=== PATIENT | female | born 1990 | race Caucasian/White ===

== ENCOUNTER → 2020-10-17 | Outpatient (CLI) | payer OTHER | END | disposition home or self-care (01) | LOC: CFH 14:37 | PROVIDERS: ATTEND Anesthesiology | DX: N20.0 Calculus of kidney (principal) | CPT/HCPCS: 74176 ==

== ENCOUNTER 2020-10-19 18:00 | Emergency (ER) | payer OTHER ==
[~2020-10-19] VITALS: Ht 165.1 cm; Wt 66.5 kg
--- NOTE | 2020-10-19 18:35 | NUR ---
PATIENT WALKED BACK FROM TRIAGE WITH CHIEF C/O "I'M PRETTY SURE I'M PASSING A KIDNEY STONE RIGHT NOW." PATIENT REPORTS FEELING REALLY SHARP PAIN IN HER LEFT SIDE THAT STARTED ABOUT AN HOUR AGO ALONG WITH SHARP PELVIC PAIN. PATIENT HAD PELVIC ULTRASOUND DONE WHICH WAS NEGATIVE. PATIENT HAD CT SCAN DONE WEDNESDAY WHICH WAS NEGATIVE, PATIENT JUST STARTED PERIOD. PATIENT HAS HISTORY OF KIDNE STONES 10 YEARS AGO. ER PROVIDER AT BEDSIDE FOR EVALUATION.
--- NOTE | 2020-10-19 18:52 | NUR ---
PATIENT TO IMAGING.
[2020-10-19] MEDS ORDERED: ONDANSETRON 2MG/ML, 2ML ONE (18:56)
[2020-10-19] MEDS ORDERED: KETOROLAC 30 MG/1 ML ONE (18:56)
[2020-10-19] MEDS ORDERED: SODIUM CHLORIDE FLUSH 10ML SYR IVF ONE (19:00)
[2020-10-19] MEDS ORDERED: ONDANSETRON 2MG/ML, 2ML IVPush ONE (19:00)
[2020-10-19] MEDS ORDERED: KETOROLAC 30 MG/1 ML IVPush ONE (19:00)
--- NOTE | 2020-10-19 19:15 | NUR ---
TASK RN: PT RESTING ON ORION. DOMING[place]. VSS. MEDICATED PER DEC. UA COLLECTED, LABELED, AND SENT TO LAB.
[2020-10-19 19:18] LABS: ALANINE AMINOTRANSFERASE 26 U/L (12-78); ALBUMIN 4.2 g/dL (3.4-5.0); ANION GAP 6 mmol/L (5-15); CALCIUM 9.4 mg/dL (8.5-10.1); CHLORIDE 110 mmol/L (98-107); CREATININE 1.05 mg/dL (0.55-1.02)
[2020-10-19 19:22] LABS: ALKALINE PHOSPHATASE 83 U/L (45-117); BILIRUBIN,TOTAL 0.5 mg/dL (0.2-1.0); TOTAL PROTEIN 7.8 g/dL (6.4-8.2)
[2020-10-19 19:23] LABS: BASOPHILS % (AUTO) 0 % (0-1); EOSINOPHILS % (AUTO) 1 % (1-7); LYMPHOCYTES % (AUTO) 27 % (22-44); MD NO; MEAN CORPUSCULAR HEMOGLOBIN 30.3 pg (27.0-34.8); MEAN CORPUSCULAR HGB CONC 34.4 g/dL (32.4-35.8); MONOCYTES % (AUTO) 5 % (2-9); NEUTROPHILS % (AUTO) 67 % (42-75); PLATELET COUNT 229 x10^3/uL (130-400); RED BLOOD COUNT 4.62 x10^6/uL (3.82-5.3); RED CELL DISTRIBUTION WIDTH 13.1 % (9.6-15.2)
--- NOTE | 2020-10-19 19:46 | NUR ---
PATIENT RESTING IN GURNEY, FRIEND AT BEDSIDE. DOMING[place], UPDATED ON POC, VSS, CALL LIGHT WITHIN REACH.
[2020-10-19 19:56] LABS: MICROSCOPIC INDICATED
--- NOTE | 2020-10-19 20:09 | NUR ---
PATIENT TO ULTRASOUND.
[2020-10-19 20:36] VITALS: BP 116/62
--- NOTE | 2020-10-19 20:50 | NUR ---
ER PROVIDER AT BEDSIDE TO DISCUSS POC.
[2020-10-19] MEDS ORDERED: TAMSULOSIN 0.4 MG CAP.ER.24H PO ONE (21:30)
[2020-10-19] MEDS ORDERED: TAMSULOSIN 0.4 MG CAP.ER.24H ONE (21:32)
--- NOTE | 2020-10-19 21:42 | NUR ---
Patient given discharge instructions and prescriptions and they have confirmed that they understand the instructions. Patient signed controlled substance contract. Patient stable and ambulatory with steady gait from ED with friend.
== END 2020-10-19 21:43 | disposition home or self-care (01) ==
LOC: ED 19:22
DX: R10.2 Pelvic and perineal pain (principal); R10.9 Unspecified abdominal pain; N13.2 Hydronephrosis with renal and ureteral calculous obstruction
CPT/HCPCS: 36415; 74018; 76770; 80053; 81001; 83690; 84703; 85025; 87086; 96374; 96375; 99285; J1885; J2405

== ENCOUNTER 2020-11-03 10:31 | Emergency (ER) | payer OTHER ==
[~2020-11-03] VITALS: Ht 165.1 cm; Wt 64.0 kg
[2020-11-03] MEDS ORDERED: KETOROLAC 30 MG/1 ML ONE (11:19)
[2020-11-03] MEDS ORDERED: ONDANSETRON 2MG/ML, 2ML ONE (11:19)
[2020-11-03 11:29] LABS: BASOPHILS % (AUTO) 1 % (0-1); EOSINOPHILS % (AUTO) 0 % (1-7); LYMPHOCYTES % (AUTO) 21 % (22-44); MEAN CORPUSCULAR HEMOGLOBIN 29.9 pg (27.0-34.8); MONOCYTES % (AUTO) 7 % (2-9); NEUTROPHILS % (AUTO) 71 % (42-75); PLATELET COUNT 264 x10^3/uL (130-400); RED BLOOD COUNT 4.48 x10^6/uL (3.82-5.3); RED CELL DISTRIBUTION WIDTH 12.7 % (9.6-15.2)
[2020-11-03 11:29] LABS: MICROSCOPIC AUTO
[2020-11-03] MEDS ORDERED: SODIUM CHLORIDE FLUSH 10ML SYR IVF ONE (11:30)
[2020-11-03] MEDS ORDERED: KETOROLAC 30 MG/1 ML IVPush ONE (11:30)
[2020-11-03] MEDS ORDERED: ONDANSETRON 2MG/ML, 2ML IVPush ONE (11:30)
[2020-11-03 11:33] VITALS: BP 132/82
[2020-11-03 11:36] LABS: ALBUMIN 4.1 g/dL (3.4-5.0); ANION GAP 9 mmol/L (5-15); CALCIUM 8.8 mg/dL (8.5-10.1); CHLORIDE 108 mmol/L (98-107); CREATININE 1.09 mg/dL (0.55-1.02)
[2020-11-03 11:37] LABS: MD NO
[2020-11-03] MEDS ORDERED: OXYcodone/APAP 5/325MG TABLET ONE (12:44)
[2020-11-03] MEDS ORDERED: OXYcodone/APAP 5/325MG TABLET PO ONE (13:00)
== END 2020-11-03 13:03 | disposition home or self-care (01) ==
LOC: ED 11:56
DX: N23 Unspecified renal colic (principal); R11.0 Nausea
CPT/HCPCS: 36415; 80048; 81001; 82040; 84703; 85025; 96374; 96375; 99284; J1885; J2405